=== PATIENT | male | born 1935 | race Caucasian/White ===

== ENCOUNTER 2018-01-01 07:21 | Inpatient (IN) | payer MEDICARE ==
[2018-01-01 08:14] LABS: ADD MAN DIFF? NO
[2018-01-01 08:16] LABS: BASOPHIL # 0.1 10^3/ul (0.0-0.1); BASOPHILS % 0.8 % (0.0-2.0); EOSINOPHILS # 0.3 10^3/ul (0.0-0.5); EOSINOPHILS % 4.3 % (0.0-7.0); HEMATOCRIT 41.1 % (42.0-52.0); HEMOGLOBIN 13.6 g/dl (14.0-18.0); LYMPHOCYTES % 15.6 % (15.0-51.0); MEAN CORPUSCULAR HEMOGLOBIN 30.7 pg (29.0-33.0); MEAN CORPUSCULAR HGB CONC 33.1 g/dl (32.0-37.0); MEAN CORPUSCULAR VOLUME 92.8 fl (82.0-101.0); MEAN PLATELET VOLUME 10.3 fl (7.4-10.4); MONOCYTE # 0.5 10^3/ul (0.3-0.9); MONOCYTES % 8.3 % (0.0-11.0); NEUTROPHIL # 4.6 10^3/ul (1.6-7.5); NEUTROPHILS % 70.7 % (39.0-77.0); PLATELET COUNT 130 10^3/UL (140-415); RED BLOOD COUNT 4.43 10^6/ul (4.70-6.10); RED CELL DISTRIBUTION WIDTH 13.1 % (11.5-14.5)
[2018-01-01 08:16] LABS: WHITE BLOOD COUNT 6.5 10^3/ul (4.8-10.8)
[2018-01-01 08:35] LABS: INR 0.99; PROTIME 13.2 Sec (11.9-14.9)
[2018-01-01 08:36] LABS: PARTIAL THROMBOPLASTIN TIME 26.2 Sec (25.0-35.0)
[2018-01-01] MEDS ORDERED: IODIXANOL LOCM 100 ML BTL (08:44)
[2018-01-01] MEDS ORDERED: FENTAnyl 50 MCG/ML VIAL (08:44)
[2018-01-01] MEDS ORDERED: MIDAZOLAM 1 MG/ML 2 ML INJ (08:44)
[2018-01-01] MEDS ORDERED: LIDOCAINE 1% (MDV) 20 ML INJ (08:44)
[2018-01-01] MEDS ORDERED: VERAPAMIL 5 MG INJ (08:44)
[2018-01-01] MEDS ORDERED: HEPARIN 1000 UNITS/ML 10 ML INJ (08:44)
[2018-01-01 08:45] LABS: ANION GAP 15 (8-16); BLOOD UREA NITROGEN 36 mg/dl (7-20); CALCIUM 9.4 mg/dl (8.4-10.2); CARBON DIOXIDE 24 mmol/L (21-31); CHLORIDE 109 mmol/L (97-110); CHOL/HDL RATIO 3.6 RATIO; CHOLESTEROL 122 mg/dl (100-200); CREATININE 1.02 mg/dl (0.61-1.24); GLUCOSE 99 mg/dl (70-220); HDL CHOLESTEROL 33 mg/dl (31-75); LDL CHOLESTEROL,CALCULATED 77 mg/dl; POTASSIUM 3.6 mmol/L (3.5-5.1); SODIUM 144 mmol/L (135-144); TRIGLYCERIDES 61 mg/dl (0-149)
[2018-01-01] MEDS ORDERED: NITROGLYCERIN (IC) 100 MCG/ML INJ (08:45)
[2018-01-01] MEDS ORDERED: morphine 2 MG INJ IV (10:30)
[2018-01-01] MEDS ORDERED: ONDANSETRON 4 MG INJ IV (10:30)
[2018-01-01] MEDS ORDERED: AL HYDROX/MG HYDROX/SIMETH 30 ML CUP PO (10:30)
[2018-01-01] MEDS ORDERED: ACETAMINOPHEN 325 MG TAB PO (10:30)
[2018-01-01] MEDS: SOD CHLORIDE 0.9% 1,000 ML IV (10:36)
[2018-01-02 06:45] LABS: ADD MAN DIFF? NO
[2018-01-02 06:53] LABS: BASOPHIL # 0.1 10^3/ul (0.0-0.1); BASOPHILS % 0.8 % (0.0-2.0); EOSINOPHILS # 0.3 10^3/ul (0.0-0.5); EOSINOPHILS % 4.6 % (0.0-7.0); HEMATOCRIT 39.2 % (42.0-52.0); LYMPHOCYTES # 1.1 10^3/ul (0.8-2.9); LYMPHOCYTES % 15.3 % (15.0-51.0); MEAN CORPUSCULAR HEMOGLOBIN 30.6 pg (29.0-33.0); MEAN CORPUSCULAR HGB CONC 33.2 g/dl (32.0-37.0); MEAN CORPUSCULAR VOLUME 92.2 fl (82.0-101.0); MEAN PLATELET VOLUME 10.8 fl (7.4-10.4); MONOCYTE # 0.7 10^3/ul (0.3-0.9); NEUTROPHIL # 5.2 10^3/ul (1.6-7.5); NEUTROPHILS % 70.2 % (39.0-77.0); PLATELET COUNT 138 10^3/UL (140-415); RED BLOOD COUNT 4.25 10^6/ul (4.70-6.10); RED CELL DISTRIBUTION WIDTH 13.2 % (11.5-14.5)
[2018-01-02 06:53] LABS: WHITE BLOOD COUNT 7.4 10^3/ul (4.8-10.8)
[2018-01-02 07:15] LABS: ANION GAP 13 (8-16); BLOOD UREA NITROGEN 26 mg/dl (7-20); CALCIUM 8.9 mg/dl (8.4-10.2); CARBON DIOXIDE 21 mmol/L (21-31); CHLORIDE 111 mmol/L (97-110); CREATININE 0.91 mg/dl (0.61-1.24); GLUCOSE 95 mg/dl (70-220); POTASSIUM 3.8 mmol/L (3.5-5.1); SODIUM 141 mmol/L (135-144)
[2018-01-02 07:23] LABS: INR 1.07; PT RATIO 1.1
[2018-01-02] MEDS: DIAZEPAM 5 MG TAB PO (08:00)
[2018-01-02] MEDS: DIPHENHYDRAMINE 50 MG CAP PO (08:00)
[2018-01-02] MEDS: CLOPIDOGREL 75 MG TAB PO (08:19)
[2018-01-02] MEDS: BICALUTAMIDE 50 MG TAB PO (08:21)
[2018-01-02] MEDS ORDERED: HEPARIN 1000 UNITS/ML 10 ML INJ (09:02)
[2018-01-02] MEDS ORDERED: IODIXANOL LOCM 100 ML BTL (09:02)
[2018-01-02] MEDS ORDERED: LIDOCAINE 1% (MDV) 20 ML INJ (09:02)
[2018-01-02] MEDS ORDERED: FENTAnyl 50 MCG/ML VIAL (09:03)
[2018-01-02] MEDS ORDERED: NITROGLYCERIN (IC) 100 MCG/ML INJ (09:03)
[2018-01-02] MEDS ORDERED: MIDAZOLAM 1 MG/ML 2 ML INJ (09:03)
[2018-01-02] MEDS ORDERED: VERAPAMIL 5 MG INJ ×2 (09:03→09:36)
[2018-01-02] MEDS ORDERED: SOD CHLORIDE 0.9% 500 ML (09:03)
[2018-01-02] MEDS ORDERED: BIVALIRUDIN 250MG /NS 50 ML 50 ML IVPB ×2 (09:36→10:02)
[2018-01-02] MEDS ORDERED: CLOPIDOGREL 300 MG TAB (11:14)
[2018-01-02] MEDS ORDERED: ASPIRIN 325 MG TAB (11:14)
[2018-01-02] MEDS ORDERED: ACETAMINOPHEN 325 MG TAB PO (11:30)
[2018-01-02] MEDS ORDERED: AL HYDROX/MG HYDROX/SIMETH 30 ML CUP PO (11:30)
[2018-01-02] MEDS ORDERED: ZOLPIDEM 5 MG TAB PO (11:30)
[2018-01-02] MEDS ORDERED: OXYCODONE/ACETAMINOPHEN (5/325) TAB PO (11:30)
[2018-01-02] MEDS: SOD CHLORIDE 0.9% 1,000 ML IV (12:05)
[2018-01-02] MEDS: ONDANSETRON 4 MG INJ IV (12:12)
[2018-01-02] MEDS: TAMSULOSIN (SR) 0.4 MG CAP PO (19:26)
[2018-01-02] MEDS: ATORVASTATIN 80 MG TAB PO (21:00)
[2018-01-02] MEDS ORDERED: TAMSULOSIN (SR) 0.4 MG CAP PO (21:00)
[2018-01-02] MEDS: BENAZEPRIL 20 MG TAB PO (22:28)
[2018-01-03 06:35] LABS: ADD MAN DIFF? NO
[2018-01-03 06:42] LABS: BASOPHILS % 0.5 % (0.0-2.0); EOSINOPHILS # 0.2 10^3/ul (0.0-0.5); HEMATOCRIT 36.1 % (42.0-52.0); HEMOGLOBIN 11.8 g/dl (14.0-18.0); LYMPHOCYTES # 1.1 10^3/ul (0.8-2.9); LYMPHOCYTES % 13.1 % (15.0-51.0); MEAN CORPUSCULAR HEMOGLOBIN 29.7 pg (29.0-33.0); MEAN CORPUSCULAR HGB CONC 32.7 g/dl (32.0-37.0); MEAN CORPUSCULAR VOLUME 90.9 fl (82.0-101.0); MEAN PLATELET VOLUME 11.1 fl (7.4-10.4); MONOCYTE # 0.9 10^3/ul (0.3-0.9); MONOCYTES % 10.3 % (0.0-11.0); NEUTROPHIL # 6.3 10^3/ul (1.6-7.5); NEUTROPHILS % 73.9 % (39.0-77.0); PLATELET COUNT 132 10^3/UL (140-415); RED BLOOD COUNT 3.97 10^6/ul (4.70-6.10); RED CELL DISTRIBUTION WIDTH 13.4 % (11.5-14.5)
[2018-01-03 06:42] LABS: WHITE BLOOD COUNT 8.5 10^3/ul (4.8-10.8)
[2018-01-03 07:05] LABS: ANION GAP 10 (8-16); BLOOD UREA NITROGEN 25 mg/dl (7-20); CALCIUM 8.6 mg/dl (8.4-10.2); CARBON DIOXIDE 24 mmol/L (21-31); CHLORIDE 108 mmol/L (97-110); CREATINE KINASE 145 IU/L (23-200); CREATININE 1.04 mg/dl (0.61-1.24); GLUCOSE 102 mg/dl (70-220); POTASSIUM 3.7 mmol/L (3.5-5.1); SODIUM 138 mmol/L (135-144)
[2018-01-03 07:12] LABS: CK INDEX 5.7; CK-MB 8.27 ng/ml (0.0-2.4)
[2018-01-03] MEDS: BENAZEPRIL 20 MG TAB PO (09:00)
[2018-01-03] MEDS: CLOPIDOGREL 75 MG TAB PO ×2 (09:00→09:30)
[2018-01-03] MEDS: ASPIRIN (EC) 81 MG TAB PO (09:30)
[2018-01-03] MEDS: BICALUTAMIDE 50 MG TAB PO (09:45)
== END 2018-01-03 14:30 | disposition home or self-care (01) | DRG 247 ==
LOC: SDS 07:21 → TEL 01-02 11:39 → SDS 07:21 → TEL 10:27 → SDS 10:12 → REC 10:13 → TEL 10:27
PROC: 027135Z Dilation of Coronary Artery, Two Arteries with Two Drug-eluting Intraluminal Devices, Percutaneous Approach (ICD-10-PCS; principal; 2018-01-01 09:00)
PROC: 02703ZZ Dilation of Coronary Artery, One Artery, Percutaneous Approach (ICD-10-PCS; 2018-01-01 09:00)
PROC: 4A023N7 Measurement of Cardiac Sampling and Pressure, Left Heart, Percutaneous Approach (ICD-10-PCS; 2018-01-01 09:00)
PROC: B211YZZ Fluoroscopy of Multiple Coronary Arteries using Other Contrast (ICD-10-PCS; 2018-01-01 09:00)
DX: I25.10 Atherosclerotic heart disease of native coronary artery without angina pectoris (principal); T82.855A Stenosis of coronary artery stent, initial encounter; I10 Essential (primary) hypertension; E78.5 Hyperlipidemia, unspecified; Z95.5 Presence of coronary angioplasty implant and graft; Y71.8 Miscellaneous cardiovascular devices associated with adverse incidents, not elsewhere classified; I34.0 Nonrheumatic mitral (valve) insufficiency; I42.9 Cardiomyopathy, unspecified; Z79.82 Long term (current) use of aspirin; Z79.02 Long term (current) use of antithrombotics/antiplatelets; N40.0 Benign prostatic hyperplasia without lower urinary tract symptoms; F03.90 Unspecified dementia, unspecified severity, without behavioral disturbance, psychotic disturbance, mood disturbance, and anxiety
CPT/HCPCS: 71045; 80048; 80061; 82550; 82553; 84484; 85025; 85610; 85730; 92929; 93005; 93458

== ENCOUNTER 2018-06-03 10:57 | Emergency (ER) | payer MEDICARE | END 2018-06-03 15:00 | disposition home or self-care (01) | LOC: FTE 10:57 | DX: S80.02XA Contusion of left knee, initial encounter (principal); D69.1 Qualitative platelet defects; W18.30XA Fall on same level, unspecified, initial encounter; Y92.9 Unspecified place or not applicable; Z79.01 Long term (current) use of anticoagulants; Z79.82 Long term (current) use of aspirin | CPT/HCPCS: 73562; 99283-25 ==